=== PATIENT | female | born 1955 | race Caucasian/White ===

== ENCOUNTER 2017-06-05 11:33 | Emergency (ER) | payer MEDICARE, MEDICAID ==
[~2017-06-05] VITALS: Ht 5703.2 cm; Wt 90.5 kg
[~2017-06-05 11:33] MED LIST: CLON-527 PO; GUAI473S11 PO; HYDR-569 PO; PIP1KIT5 TP; RABE20TA25 PO; RISP1TAB13 PO
[2017-06-05 11:46] VITALS: BP 116/69
[2017-06-05] MEDS ORDERED: AMOX-580 PO (12:12)
== END 2017-06-05 12:22 | disposition home or self-care (01) ==
LOC: ER 11:33
DX: K04.7 Periapical abscess without sinus (principal); F17.200 Nicotine dependence, unspecified, uncomplicated; J44.9 Chronic obstructive pulmonary disease, unspecified; K21.9 Gastro-esophageal reflux disease without esophagitis
CPT/HCPCS: 99283

== ENCOUNTER 2017-07-02 12:33 | Emergency (ER) | payer MEDICARE, MEDICAID ==
[~2017-07-02] VITALS: Ht 175.3 cm; Wt 79.5 kg
[~2017-07-02 12:33] MED LIST changes: +AMOX-580 PO
[2017-07-02 12:37] VITALS: BP 129/86
== END 2017-07-02 14:14 | disposition home or self-care (01) ==
LOC: ER 12:34
DX: J04.0 Acute laryngitis (principal); J44.9 Chronic obstructive pulmonary disease, unspecified; K21.9 Gastro-esophageal reflux disease without esophagitis; Z79.899 Other long term (current) drug therapy
CPT/HCPCS: 87081; 87880; 99284

== ENCOUNTER 2017-11-25 22:42 | Emergency (ER) | payer MEDICARE, MEDICAID ==
[~2017-11-25] VITALS: Ht 172.7 cm; Wt 82.0 kg
[~2017-11-25 22:42] MED LIST changes: -AMOX-580 PO
[2017-11-25 22:52] VITALS: BP 104/61
[2017-11-25] MEDS ORDERED: TETanus/Pertussis (Acell)/Diphther VAC/PF (Tdap-Adult) 0.5ml syringe IM ONE (23:50)
[2017-11-25] MEDS ORDERED: LIDOcaine 1.5% w/epinephrine 1:200,000 5ml ampul IJ ONE (23:50)
[2017-11-26] MEDS ORDERED: CEPH250T PO (00:46)
== END 2017-11-26 01:50 | disposition home or self-care (01) ==
LOC: ER 22:42
DX: S81.811A Laceration without foreign body, right lower leg, initial encounter (principal); J44.9 Chronic obstructive pulmonary disease, unspecified; K21.9 Gastro-esophageal reflux disease without esophagitis; Z98.890 Other specified postprocedural states; Z79.2 Long term (current) use of antibiotics; Z79.899 Other long term (current) drug therapy; W45.8XXA Other foreign body or object entering through skin, initial encounter; Y93.01 Activity, walking, marching and hiking; Y92.89 Other specified places as the place of occurrence of the external cause; Y99.8 Other external cause status
CPT/HCPCS: 90471; 90715; 99284; A6255; J3490; 96372

== ENCOUNTER 2017-11-30 11:12 | Emergency (ER) | payer MEDICARE, MEDICAID ==
[~2017-11-30] VITALS: Ht 167.6 cm; Wt 91.0 kg
[~2017-11-30 11:12] MED LIST changes: +CEPH250T PO
[2017-11-30 11:30] VITALS: BP 110/75
== END 2017-11-30 14:01 | disposition home or self-care (01) ==
LOC: ER 11:12
DX: T81.89XA Other complications of procedures, not elsewhere classified, initial encounter (principal); S81.801D Unspecified open wound, right lower leg, subsequent encounter; J44.9 Chronic obstructive pulmonary disease, unspecified; K21.9 Gastro-esophageal reflux disease without esophagitis; Z79.2 Long term (current) use of antibiotics; Z79.899 Other long term (current) drug therapy; X58.XXXD Exposure to other specified factors, subsequent encounter; Y92.89 Other specified places as the place of occurrence of the external cause
CPT/HCPCS: 99282; A6255; A6449

== ENCOUNTER 2017-12-12 10:11 | Emergency (ER) | payer MEDICARE, MEDICAID ==
[~2017-12-12] VITALS: Ht 172.7 cm; Wt 93.2 kg
[~2017-12-12 10:11] MED LIST changes: -CEPH250T PO
[2017-12-12 10:15] VITALS: BP 133/73
[2017-12-12] MEDS ORDERED: LIDOcaine 1%/PF 5ML 10 MG/ML VIAL IJ ONE (11:25)
== END 2017-12-12 12:05 | disposition home or self-care (01) ==
LOC: ER 10:12
DX: S81.811D Laceration without foreign body, right lower leg, subsequent encounter (principal); J44.9 Chronic obstructive pulmonary disease, unspecified; E78.00 Pure hypercholesterolemia, unspecified; K21.9 Gastro-esophageal reflux disease without esophagitis; F17.200 Nicotine dependence, unspecified, uncomplicated; Z79.899 Other long term (current) drug therapy; W45.8XXD Other foreign body or object entering through skin, subsequent encounter
CPT/HCPCS: 12001; 99284; A6449; J2001

== ENCOUNTER 2017-12-27 08:38 | Emergency (ER) | payer MEDICARE, MEDICAID ==
[~2017-12-27 08:38] MED LIST changes: +HYDR-4383 PO; -HYDR-569 PO
[2017-12-27 08:49] VITALS: BP 98/72
== END 2017-12-27 09:50 | disposition home or self-care (01) ==
LOC: ER 08:38
DX: S81.811D Laceration without foreign body, right lower leg, subsequent encounter (principal); L08.9 Local infection of the skin and subcutaneous tissue, unspecified; E78.00 Pure hypercholesterolemia, unspecified; J44.9 Chronic obstructive pulmonary disease, unspecified; K21.9 Gastro-esophageal reflux disease without esophagitis; Z98.890 Other specified postprocedural states; Z79.899 Other long term (current) drug therapy; X58.XXXD Exposure to other specified factors, subsequent encounter
CPT/HCPCS: 99281

== ENCOUNTER 2018-11-26 17:05 | Emergency (ER) | payer MEDICARE, MEDICAID ==
[~2018-11-26] VITALS: Ht 172.7 cm; Wt 90.0 kg
[~2018-11-26 17:05] MED LIST changes: +CLIN-96 PO
[2018-11-26] MEDS ORDERED: LIDOcaine 1% w/EPI 1:200,000 injection 10mL vial IM ONE (17:25)
[2018-11-26] MEDS ORDERED: LIDOcaine 1% W/epiNEPHrine 1:100,000 20ml vial IJ ONE (17:25)
[2018-11-26 18:08] VITALS: BP 117/60
== END 2018-11-26 18:15 | disposition home or self-care (01) ==
LOC: ER 17:06
DX: S91.311A Laceration without foreign body, right foot, initial encounter (principal); E78.00 Pure hypercholesterolemia, unspecified; J44.9 Chronic obstructive pulmonary disease, unspecified; K21.9 Gastro-esophageal reflux disease without esophagitis; F17.210 Nicotine dependence, cigarettes, uncomplicated; Z98.890 Other specified postprocedural states; W25.XXXA Contact with sharp glass, initial encounter; Y93.89 Activity, other specified; Y92.89 Other specified places as the place of occurrence of the external cause; Y99.9 Unspecified external cause status
CPT/HCPCS: 73620; 99283

== ENCOUNTER 2022-01-21 08:16 | Emergency (ER) | payer MEDICARE, MEDICAID ==
[~2022-01-21] VITALS: Ht 170.2 cm; Wt 90.9 kg
[~2022-01-21 08:16] MED LIST changes: -CLIN-96 PO; +CLIN-97 PO
[2022-01-21] MEDS ORDERED: ondansetron 4mg rapidly disintigrating tab PO ONE (10:05)
[2022-01-21] MEDS ORDERED: morphine 4 MG/ML inj SYRINge IM ONE (10:05)
[2022-01-21 10:30] VITALS: BP 129/74
== END 2022-01-21 10:32 | disposition home or self-care (01) ==
LOC: ER 08:16
DX: M25.511 Pain in right shoulder (principal); J44.9 Chronic obstructive pulmonary disease, unspecified; K21.9 Gastro-esophageal reflux disease without esophagitis; E78.00 Pure hypercholesterolemia, unspecified; F41.9 Anxiety disorder, unspecified; Z87.81 Personal history of (healed) traumatic fracture; Z79.899 Other long term (current) drug therapy; Z79.1 Long term (current) use of non-steroidal anti-inflammatories (NSAID); Z79.2 Long term (current) use of antibiotics; W19.XXXA Unspecified fall, initial encounter; Y93.89 Activity, other specified; Y92.89 Other specified places as the place of occurrence of the external cause; Y99.8 Other external cause status
CPT/HCPCS: 29125; 73030; 96372; 99284; J2270; A4565

== ENCOUNTER 2024-06-29 11:28 | Emergency (ER) | payer MEDICARE, MEDICAID ==
[~2024-06-29] VITALS: Ht 170.2 cm; Wt 102.0 kg
[2024-06-29 11:37] VITALS: BP 110/78; PULSE 94; RESP 16; O2SAT 96
[2024-06-29] MEDS ORDERED: HYDR-3965 PO (17:14)
[2024-06-29 17:41] VITALS: TEMP 98
== END 2024-06-29 17:43 | disposition home or self-care (01) ==
LOC: ER 11:29
DX: S46.211A Strain of muscle, fascia and tendon of other parts of biceps, right arm, initial encounter (principal); J44.9 Chronic obstructive pulmonary disease, unspecified; E78.00 Pure hypercholesterolemia, unspecified; K21.9 Gastro-esophageal reflux disease without esophagitis; F32.A Depression, unspecified; F41.9 Anxiety disorder, unspecified; Z98.890 Other specified postprocedural states; Z72.89 Other problems related to lifestyle; Z79.899 Other long term (current) drug therapy; X58.XXXA Exposure to other specified factors, initial encounter; Y93.89 Activity, other specified; Y92.89 Other specified places as the place of occurrence of the external cause; Y99.8 Other external cause status
CPT/HCPCS: 29105; 73221; 99284; A4565; A6446; A6449